=== PATIENT | female | born 1995 | race Caucasian/White ===

== ENCOUNTER → 2018-03-16 | Outpatient (CLI) | payer BC ==
--- NOTE | 2018-03-16 09:14 | USB ---
Reason for exam: clinical finding. History: Family history of breast cancer in paternal aunt at age 50 and breast cancer in maternal grandmother at age 50. Taking hormonal contraceptives beginning at age 15. Indicated problem(s): palpable abnormality in the left breast. Physical Findings: Nurse Summary: 1cm moves (nurse karishma). US Breast LT Left complete breast ultrasound includes all four quadrants, the retroareolar region and axilla. Finding demonstrates no cystic or solid lesion greater than 0.50cm. Dense tissue on images seen. These results were verbally communicated with the patient and result sheet given to the patient on 03/16/18. ASSESSMENT: Negative, BI-RAD 1 RECOMMENDATION: Clinical management of the left breast. Manage patient on a clinical basis.
== END | disposition home or self-care (01) ==
LOC: RADUSWWP 07:31
PROVIDERS: ATTEND Obstetrics & Gynecology
DX: N63.20 Unspecified lump in the left breast, unspecified quadrant (principal)